=== PATIENT | male | born 1980 | race African-American/Black ===

== ENCOUNTER 2016-10-25 19:36 | Emergency (ER) | payer OTHER ==
[~2016-10-25] VITALS: Ht 175.3 cm; Wt 100.0 kg
[2016-10-25 19:42] VITALS: TEMP 98.3
[2016-10-25] MEDS ORDERED: PREDNISONE20 MG PO (20:32)
[2016-10-25 20:46] VITALS: BP 148/113; PULSE 90
== END 2016-10-25 20:46 | disposition home or self-care (01) ==
LOC: COL.ER 19:36
DX: R21 Rash and other nonspecific skin eruption (principal); I10 Essential (primary) hypertension
CPT/HCPCS: J7512

== ENCOUNTER → 2019-01-14 | Outpatient (CLI) | payer OTHER ==
[~2019-01-14] MED LIST: PREDNISONE20 MG PO
== END ==
LOC: COL.RAD 11:29
DX: N50.3 Cyst of epididymis (principal)